=== PATIENT | female | born 1950 | race Caucasian/White ===

== ENCOUNTER 2016-12-02 11:38 | Inpatient (IN) | payer MEDICARE ==
[2016-12-02] VITALS (7 sets, daily range): BP systolic 108–125; BP diastolic 50–86
[~2016-12-02] VITALS: Ht 152.4 cm; Wt 66.7 kg
--- NOTE | ~2016-12-02 | PR ---
[place], [place] PROGRESS NOTE NAME: DEAN RODRIGUEZ UNIT #: [id number] ROOM: 523 DOCTOR: DAYNA DIAZ MD BIRTHDATE: [birth year] DOS: 12/02/2016 SUBJECTIVE: The patient was seen because of pancytopenia. Full consult to follow. The patient was advised to stop methotrexate. We also gave her a couple of units of packed RBC and started on growth factors. Depending on that, further intervention. I had detailed discussion with the patient about it. In the meantime, neutropenic precautions. DAYNA DIAZ MD CM:PNALBER [id number] DAYNA DIAZ MD 12/03/16 0757 interface
--- NOTE | ~2016-12-02 | PR ---
[place], [place] PROGRESS NOTE NAME: DEAN RODRIGUEZ UNIT #: [id number] ROOM: 523 DOCTOR: NESTOR WAGGONER MD BIRTHDATE: [birth year] DOS: 12/04/2016 SUBJECTIVE: The patient is feeling better and wanting to go home. OBJECTIVE: VITAL SIGNS: Blood pressure 132/72, heart rate 75 beats per minute, breathing 18 times per minute, temperature of 100 degrees Fahrenheit. GENERAL APPEARANCE: The patient is alert and oriented x 3, in no visible distress. HEENT AND NECK: Exam within normal limits. CARDIOVASCULAR SYSTEM: Heart rate is regular in rate and rhythm. S1 and S2 normally audible. LUNGS: Clear to auscultation. ABDOMEN: Soft, nontender. No obvious organomegaly. Bowel sounds are present. EXTREMITIES: Without significant cyanosis or edema. IMPRESSION: 1. The patient has neutropenic fever, being treated with ceftriaxone and Levaquin. She still has low grade fever, but a white cell count has improved 5000. Dr. Chambers the commissioner of conciliation box sorter who is following her. 2. Severe hypokalemia with a potassium level of 2.7 today to be replaced with liquid potassium now and potassium level to be repeated today and then tomorrow. 3. Blood and urine cultures have been negative. 4. Benign essential hypertension with controlled blood pressures. 3. Rheumatoid arthritis, treated with methotrexate and Humira, which is on hold now for neutropenic fever. NESTOR WAGGONER MD CM:PNTRANS [id number] NESTOR WAGGONER MD 12/05/16 1527 interface
--- NOTE | ~2016-12-02 | WRIGHTHP ---
[place], [place] PATIENT HISTORY AND PHYSICAL EXAM NAME: DEAN [facility]ODRIGUEZ [facility] [id number] UNIT #: [id number] ROOM: 523 DOCTOR: SAWYER PANTOJA MD BIRTHDATE: [birth year] DOS: 12/03/2016 HISTORY OF PRESENT ILLNESS: The patient is very well known to us. She presented to the office on Thursday with cold-like symptoms. The patient had called the office and had a prescription for Z-Westley a few days prior to that and she was not getting any better, so she decided to come into the office. She complained of sore throat, slight cough. She also complained of increasing tiredness and weakness. She had routine blood work ordered. She was also found to have some minimal oral candidiasis and a URI. She was placed on Nystatin swish and swallow antibiotics and blood work. The blood work showed that the patient had significant pancytopenia. [employer] who received the blood work did call her and advised admission on Thursday evening, but the patient refused. I spoke to him on Thursday morning and the patient was called in to get admitted. The patient after admission was found to be again pancytopenic. Dr. Chambers was consulted and the patient is ordered blood transfusion. This morning, the patient does not have any complaints, other than a sore throat and sore lips. PAST MEDICAL HISTORY: Significant for, 1. Rheumatoid arthritis. 2. Benign hypertension. 3. Mixed hyperlipidemia. 4. History of knee replacement, bilateral in 2005. MEDICATIONS: That she is currently on are amlodipine 10, atenolol 100, cyclobenzaprine 10 t.i.d., vitamin D 50,000 units on , folic acid 1 mg daily, lovastatin 20 daily, and methotrexate along with prednisone 5 mg daily. SOCIAL HISTORY: Nonsmoker, does not use any alcohol. Lives at home with her . PHYSICAL EXAMINATION: GENERAL: The patient is awake, alert and oriented this morning, in no distress. VITAL SIGNS: Graphic trend shows that she did have a temperature during the night with a T-max of about 100.3. This morning, a low grade temperature of 99.9. NECK: Supple. No lymph nodes. No cervical lymphadenopathy noticed. Pharynx, minimally red, but no evidence of any underlying tonsillitis or strep throat. LUNGS: Diminished breath sounds, clear. HEART: Regular. ABDOMEN: Soft, nontender. No hepatosplenomegaly. EXTREMITIES: Without any edema. No rash or petechiae is seen anywhere on her skin. LABORATORY DATA: At the time of admission, WBC count of 1.9, hemoglobin was 7.0, and platelets 73. ASSESSMENT AND PLAN: 1. 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 The patient has been admitted. Dr. Chambers has been consulted. The patient has been started [place], [place] PATIENT HISTORY AND PHYSICAL EXAM NAME: DEAN RODRIGUEZ UNIT #: [id number] ROOM: 523 DOCTOR: SAWYER PANTOJA MD BIRTHDATE: [birth year] on Neupogen. Neutropenic precautions ordered. Also, blood cultures, urine cultures and chest x-ray was done and the patient is placed on broad spectrum antibiotics. 2. Benign hypertension, controlled. 3. Rheumatoid arthritis without a flare right now, she will continue her low dose prednisone. SAWYER PANTOJA MD CM:HISPHYS:PATIENT HISTORY AND PHYSICAL EXAMINATION 7 2 SAWYER PANTOJA MD 12/03/16902 interface
--- NOTE | ~2016-12-02 | DS ---
[place], [place] DISCHARGE SUMMARY NAME[id number] UNIT #: [id number] ROOM: 523 DOCTOR: NESTOR WAGGONER MD BIRTHDATE: [birth year] DOS: 12/05/2016 DISCHARGE DIAGNOSES: 1. Neutropenic fever, resolved. 2. Pancytopenia and leukopenia evaluated by Dr. Chambers, improved. 3. Hypokalemia, treated. 4. Rheumatoid arthritis treated with Humira and methotrexate. 5. Benign essential hypertension. 6. Mixed hyperlipidemia. 7. History of knee replacement bilaterally in 2005. HOSPITAL COURSE: The patient was admitted by Dr. Shy Mondragon for neutropenic fever apparently caused by taking methotrexate any Humira for rheumatoid arthritis. The patient's both medications were stopped and blood counts were followed until they improved to normal. Total white cell count 9000, neutrophil counts 48% and patient was afebrile. The patient was treated with antibiotics during her stay at the hospital and now that she is feeling well, she will be discharged to home after clearance from Dr. Chambers to follow up with her PCP, Dr. Mondragon on Thursday or Thursday. Hypokalemia, treated with extra potassium supplements. Potassium levels are improving towards normal range from 2.7, it improved to 3.1 yesterday and it is 3.3 now and after those, the patient was given another dose of extra potassium before going home. DISCHARGE MANAGEMENT: Fosamax 70 mg weekly, simvastatin 20 mg a day, Tylenol p.r.n., prednisone 5 mg daily, folic acid 1 mg daily, atenolol 100 mg daily, amlodipine 10 mg a day, DuoNebs as needed, Abreva 5 times daily, nystatin 5 mL b.i.d. Followup with Dr. Mondragon on Thursday. The patient cleared by Dr. Chambers for discharge and outpatient followup after her neutropenic fever resolved. NESTOR WAGGONER MD CM:DISCHMILVIA [id number] NESTOR WAGGONER MD 12/05/161940 interface
[~2016-12-02 11:38] MED LIST: DARVOCET N 1001 TAB PO
[2016-12-02] MEDS ORDERED: VITAMIN D50000 I3 PO (12:26)
[2016-12-02] MEDS ORDERED: CYCLOBENZAPRINE10 MG PO (12:26)
[2016-12-02] MEDS ORDERED: AMLODIPINE BESY10 MG PO (12:27)
[2016-12-02] MEDS ORDERED: LOVASTATIN20 MG PO (12:27)
[2016-12-02] MEDS ORDERED: ATENOLOL100 M1 PO (12:27)
[2016-12-02] MEDS ORDERED: RAYOS5 M1 PO (12:28)
[2016-12-02] MEDS ORDERED: METHOTREXATE2.5 M1 PO ×2 (12:29→12:30)
[2016-12-02] MEDS ORDERED: FOSAMAX70 M1 PO (12:30)
[2016-12-02] MEDS ORDERED: NATURE'S BLEND F1 MG PO (12:31)
[2016-12-02] MEDS ORDERED: AMOXICILLIN500 M2 PO (12:31)
[2016-12-02] MEDS ORDERED: NYSTATIN100000 U/M PO (12:32)
[2016-12-02] MEDS ORDERED: FLUCONAZOLE100 MG PO (12:32)
[2016-12-02 13:34] LABS: HEMATOCRIT 21.6 % (37.0-47.0); MEAN CELL VOLUME 99.1 fl (81.0-99.0); MEAN CORPUSCULAR HGB 32.1 pg (27.0-31.0); MEAN CORPUSCULAR HGB CONC 32.4 g/dl (33.0-37.0); MEAN PLATELET VOLUME 10.3 fl (9.6-12.3); NUCLEATED RED BLOOD CELL 2.6 % (0.0-0.0); PLATELET COUNT AUTOMATED 73 10*3/uL (130-400); RED BLOOD COUNT 2.18 10*6/uL (4.10-5.10); RED CELL DISTRI WIDTH 17.2 % (0-14.5)
[2016-12-02 13:51] LABS: EOSINOPHILS 3 % (1-4); LYMPHOCYTE # 0.6 10*3/uL (1.3-4.4); MONOCYTE # 0.1 10*3/uL (0.1-1.0); NEUTROPHIL # 0.5 10*3/uL (2.3-7.9); NEUTROPHILS 38 % (47-73); PLATELET SUFFICIENCY LOW (NORMAL); POLYCHROMASIA SLIGHT; TOTAL CELLS COUNTED 100 #CELLS
[2016-12-02 13:53] LABS: WHITE BLOOD COUNT 1.2 10*3/uL (4.8-10.8)
[2016-12-02 14:18] LABS: RETICULOCYTE % 1.79 % (0.50-2.50)
[2016-12-02 14:21] LABS: IRF 30.1 % (2.4-13.3); RET-He 37.7 pg (32.1-37.9)
[2016-12-02 14:26] LABS: IRON 24 ug/dL (50-170); IRON SATURATION 10 %; UIBC 195 ug/dL (110-365)
[2016-12-03] VITALS (12 sets, daily range): BP systolic 111–147; BP diastolic 60–76
[2016-12-03 06:51] LABS: MEAN CORPUSCULAR HGB 31.4 pg (27.0-31.0); MEAN CORPUSCULAR HGB CONC 34.3 g/dl (33.0-37.0); NUCLEATED RED BLOOD CELL 1.1 % (0.0-0.0); PLATELET COUNT AUTOMATED 59 10*3/uL (130-400); RED BLOOD COUNT 3.28 10*6/uL (4.10-5.10); RED CELL DISTRI WIDTH 17.7 % (0-14.5)
[2016-12-03 06:58] LABS: HEMOGLOBIN 10.3 g/dl (12.0-16.0); MEAN CELL VOLUME 91.5 fl (81.0-99.0)
[2016-12-03 07:16] LABS: EOSINOPHIL # 0.3 10*3/uL (0-0.4); EOSINOPHILS 14 % (1-4); MONOCYTE # 0.2 10*3/uL (0.1-1.0); MYELOCYTES 1 % (0-0); NEUTROPHIL # 0.4 10*3/uL (2.3-7.9); NEUTROPHILS 21 % (47-73); OVALOCYTES FEW; PLATELET SUFFICIENCY LOW (NORMAL); TEAR DROP CELLS FEW; TOTAL CELLS COUNTED 100 #CELLS
[2016-12-03 07:18] LABS: WHITE BLOOD COUNT 1.9 10*3/uL (4.8-10.8)
[2016-12-03 07:24] LABS: EST GLOM FILT AFRICAN AMERICAN > 60 ml/min
[2016-12-04] VITALS: BP 116/71; BP 130/65
[2016-12-04 06:47] LABS: HEMATOCRIT 29.8 % (37.0-47.0); HEMOGLOBIN 10.2 g/dl (12.0-16.0); MEAN CELL VOLUME 92.5 fl (81.0-99.0); MEAN CORPUSCULAR HGB 31.7 pg (27.0-31.0); MEAN CORPUSCULAR HGB CONC 34.2 g/dl (33.0-37.0); MEAN PLATELET VOLUME 11.5 fl (9.6-12.3); NUCLEATED RED BLOOD CELL 0.4 % (0.0-0.0); RED BLOOD COUNT 3.22 10*6/uL (4.10-5.10); RED CELL DISTRI WIDTH 18.4 % (0-14.5); WHITE BLOOD COUNT 5.1 10*3/uL (4.8-10.8)
[2016-12-04 06:54] LABS: PLATELET COUNT AUTOMATED 77 10*3/uL (130-400)
[2016-12-04 07:10] LABS: ACANTHOCYTES FEW; BASOPHIL # 0.1 10*3/uL (0-0.1); BASOPHILS 1 % (0-1); EOSINOPHIL # 0.9 10*3/uL (0-0.4); EOSINOPHILS 17 % (1-4); LYMPHOCYTE # 1.1 10*3/uL (1.3-4.4); METAMYELOCYTES 5 % (0-0); MONOCYTE # 0.7 10*3/uL (0.1-1.0); MYELOCYTES 5 % (0-0); NEUTROPHIL # 1.8 10*3/uL (2.3-7.9); NEUTROPHILS 35 % (47-73); OVALOCYTES FEW; PLATELET SUFFICIENCY LOW (NORMAL); PROMYELOCYTES 2 % (0-0); TOTAL CELLS COUNTED 100 #CELLS
[2016-12-04 07:22] LABS: BUN 4 mg/dl (7-24); CARBON DIOXIDE 22 mmol/L (21-32); CHLORIDE 112 mmol/L (98-107); EST GLOM FILT AFRICAN AMERICAN > 60 ml/min; GLUCOSE 85 mg/dL (65-99); POTASSIUM 2.7 mmol/L (3.5-5.1); SODIUM 145 mmol/L (136-145)
[2016-12-04 08:00] VITALS: BP 127/66
[2016-12-04 12:00] VITALS: BP 119/64
[2016-12-04 16:00] VITALS: BP 132/72
[2016-12-04 20:00] VITALS: BP 128/70
[2016-12-05] VITALS: BP 116/71; BP 128/70
[2016-12-05 07:00] LABS: HEMATOCRIT 31.1 % (37.0-47.0); HEMOGLOBIN 10.6 g/dl (12.0-16.0); MEAN CELL VOLUME 92.6 fl (81.0-99.0); MEAN CORPUSCULAR HGB 31.5 pg (27.0-31.0); MEAN CORPUSCULAR HGB CONC 34.1 g/dl (33.0-37.0); MEAN PLATELET VOLUME 11.5 fl (9.6-12.3); NUCLEATED RED BLOOD CELL 0.2 % (0.0-0.0); RED BLOOD COUNT 3.36 10*6/uL (4.10-5.10); RED CELL DISTRI WIDTH 18.6 % (0-14.5)
[2016-12-05 07:09] LABS: PLATELET COUNT AUTOMATED 104 10*3/uL (130-400)
[2016-12-05 07:29] LABS: EOSINOPHIL # 1.1 10*3/uL (0-0.4); EOSINOPHILS 12 % (1-4); LYMPHOCYTE # 1.4 10*3/uL (1.3-4.4); METAMYELOCYTES 1 % (0-0); MONOCYTE # 1.6 10*3/uL (0.1-1.0); MYELOCYTES 3 % (0-0); NEUTROPHIL # 4.3 10*3/uL (2.3-7.9); NEUTROPHILS 48 % (47-73); OVALOCYTES MODERATE; PLATELET SUFFICIENCY LOW (NORMAL); POLYCHROMASIA SLIGHT; PROMYELOCYTES 2 % (0-0); TOTAL CELLS COUNTED 100 #CELLS
[2016-12-05 07:33] LABS: BUN 4 mg/dl (7-24); CARBON DIOXIDE 22 mmol/L (21-32); CHLORIDE 114 mmol/L (98-107); EST GLOM FILT AFRICAN AMERICAN > 60 ml/min; GLUCOSE 74 mg/dL (65-99); POTASSIUM 3.3 mmol/L (3.5-5.1); SODIUM 146 mmol/L (136-145)
[2016-12-05 08:00] VITALS: BP 126/67
[2016-12-05 12:00] VITALS: BP 135/77
[2016-12-05 15:39] VITALS: BP 93/59
== END 2016-12-05 16:08 | disposition home or self-care (01) | DRG 810 ==
LOC: 5E 11:38
PROVIDERS: Internal Medicine; Internal Medicine Hematology & Oncology
PROC: 30233N1 Transfusion of Nonautologous Red Blood Cells into Peripheral Vein, Percutaneous Approach (ICD-10-PCS; principal; 2016-12-02)
DX: D61.811 Other drug-induced pancytopenia (principal); I10 Essential (primary) hypertension; T45.1X5A Adverse effect of antineoplastic and immunosuppressive drugs, initial encounter; M06.9 Rheumatoid arthritis, unspecified; E78.2 Mixed hyperlipidemia; Z96.653 Presence of artificial knee joint, bilateral; E87.6 Hypokalemia; R50.81 Fever presenting with conditions classified elsewhere

== ENCOUNTER → 2017-10-15 | Outpatient (CLI) | payer MEDICARE ==
[~2017-10-15] VITALS: Ht 149.8 cm; Wt 68.9 kg
[~2017-10-15] MED LIST changes: +AMLODIPINE BESY10 MG PO; +AMOXICILLIN500 M2 PO; +ATENOLOL100 M1 PO; +CYCLOBENZAPRINE10 MG PO; +FLUCONAZOLE100 MG PO; +FOSAMAX70 M1 PO; +HUMIRA40 MG/0.3 IJ; +HYDROCODONE-AC1 EAC2 PO; +LOVASTATIN20 MG PO; +METHOTREXATE S2.5 M1 PO; +METHOTREXATE2.5 M1 PO; +NATURE'S BLEND F1 MG PO; +NYSTATIN100000 U/M PO; +RAYOS5 M1 PO; +VITAMIN D50000 I3 PO
== END | disposition home or self-care (01) ==
LOC: EDSTATUS 10-13 14:45 → SDC 10-13 14:45 → RAD 07:24 → SDC 10:00 → EDSTATUS 14:45 → SDC 14:45
DX: M54.5 Low back pain (principal); M48.50XD Collapsed vertebra, not elsewhere classified, site unspecified, subsequent encounter for fracture with routine healing; Z01.812 Encounter for preprocedural laboratory examination

== ENCOUNTER → 2017-10-22 | Outpatient (CLI) | payer MEDICARE | END | disposition home or self-care (01) | LOC: US 15:27 | DX: R79.89 Other specified abnormal findings of blood chemistry (principal) ==

== ENCOUNTER 2017-11-01 12:06 | Emergency (ER) | payer MEDICARE ==
[~2017-11-01] VITALS: Ht 152.4 cm; Wt 68.9 kg
[2017-11-01] MEDS ORDERED: LEXAPRO10 MG PO (12:19)
== END 2017-11-01 13:53 | disposition home or self-care (01) ==
LOC: ED 12:06
DX: G89.29 Other chronic pain (principal); M54.5 Low back pain; Z98.51 Tubal ligation status; Z79.899 Other long term (current) drug therapy

== ENCOUNTER → 2019-01-28 | Outpatient (CLI) | payer MEDICARE ==
[~2019-01-28] MED LIST changes: +LEXAPRO10 MG PO
[2019-01-28 13:39] LABS: BASO % 0.5 % (0.0-1.0); EOS # 0.1 10*3/uL (0.0-0.4); EOS % 1.8 % (1.0-4.0); HEMATOCRIT 39.8 % (37.0-47.0); HEMOGLOBIN 12.9 g/dl (12.0-16.0); LYMPH # 2.4 10*3/uL (1.3-4.4); LYMPH % 40.6 % (27.0-41.0); MEAN CELL VOLUME 102.3 fl (81.0-99.0); MEAN CORPUSCULAR HGB 33.2 pg (27.0-31.0); MEAN CORPUSCULAR HGB CONC 32.4 g/dl (33.0-37.0); MEAN PLATELET VOLUME 9.7 fl (9.6-12.3); MONO # 0.6 10*3/uL (0.1-1.0); MONO % 9.7 % (3.0-9.0); NEUT # 2.8 10*3/uL (2.3-7.9); NEUT % 47.2 % (47.0-73.0); PLATELET COUNT AUTOMATED 208 10*3/uL (130-400); RED BLOOD COUNT 3.89 10*6/uL (4.10-5.10); RED CELL DISTRI WIDTH 14.9 % (0-14.5)
[2019-01-28 13:53] LABS: ALBUMIN 4.2 gm/dl (3.1-4.5); CREATININE 0.99 mg/dL (0.55-1.02); SGOT/AST 27 IU/L (3-35); SGPT/ALT 32 U/L (12-78)
== END | disposition home or self-care (01) ==
LOC: LAB 12:46
PROVIDERS: Internal Medicine Rheumatology
DX: Z51.81 Encounter for therapeutic drug level monitoring (principal)

== ENCOUNTER → 2019-05-11 | Outpatient (CLI) | payer MEDICARE ==
[2019-05-11 10:30] LABS: BASO % 0.6 % (0.0-1.0); EOS # 0.1 10*3/uL (0.0-0.4); EOS % 1.6 % (1.0-4.0); HEMATOCRIT 38.5 % (37.0-47.0); HEMOGLOBIN 12.9 g/dl (12.0-16.0); LYMPH # 2.1 10*3/uL (1.3-4.4); LYMPH % 41.3 % (27.0-41.0); MEAN CELL VOLUME 99.5 fl (81.0-99.0); MEAN CORPUSCULAR HGB 33.3 pg (27.0-31.0); MEAN CORPUSCULAR HGB CONC 33.5 g/dl (33.0-37.0); MEAN PLATELET VOLUME 9.5 fl (9.6-12.3); MONO # 0.6 10*3/uL (0.1-1.0); MONO % 11.9 % (3.0-9.0); NEUT # 2.3 10*3/uL (2.3-7.9); NEUT % 44.4 % (47.0-73.0); PLATELET COUNT AUTOMATED 188 10*3/uL (130-400); RED BLOOD COUNT 3.87 10*6/uL (4.10-5.10); RED CELL DISTRI WIDTH 14.6 % (0-14.5); WHITE BLOOD COUNT 5.1 10*3/uL (4.8-10.8)
[2019-05-11 10:51] LABS: ALBUMIN 4.3 gm/dl (3.1-4.5); CREATININE 0.97 mg/dL (0.55-1.02); SGOT/AST 18 IU/L (3-35); SGPT/ALT 21 U/L (12-78)
== END | disposition home or self-care (01) ==
LOC: LAB 10:06
PROVIDERS: Internal Medicine Rheumatology
DX: Z51.81 Encounter for therapeutic drug level monitoring (principal)

== ENCOUNTER → 2019-07-26 | Outpatient (CLI) | payer MEDICARE ==
[2019-07-26 11:20] LABS: BASO % 0.5 % (0.0-1.0); EOS # 0.1 10*3/uL (0.0-0.4); EOS % 1.4 % (1.0-4.0); HEMATOCRIT 39.2 % (37.0-47.0); HEMOGLOBIN 12.9 g/dl (12.0-16.0); LYMPH # 1.5 10*3/uL (1.3-4.4); LYMPH % 18.8 % (27.0-41.0); MEAN CELL VOLUME 102.6 fl (81.0-99.0); MEAN CORPUSCULAR HGB 33.8 pg (27.0-31.0); MEAN CORPUSCULAR HGB CONC 32.9 g/dl (33.0-37.0); MEAN PLATELET VOLUME 9.6 fl (9.6-12.3); MONO # 0.6 10*3/uL (0.1-1.0); MONO % 7.5 % (3.0-9.0); NEUT # 5.5 10*3/uL (2.3-7.9); NEUT % 71.5 % (47.0-73.0); PLATELET COUNT AUTOMATED 249 10*3/uL (130-400); RED BLOOD COUNT 3.82 10*6/uL (4.10-5.10); RED CELL DISTRI WIDTH 15.2 % (0-14.5); WHITE BLOOD COUNT 7.8 10*3/uL (4.8-10.8)
[2019-07-26 11:40] LABS: ALBUMIN 4.1 gm/dl (3.1-4.5); CREATININE 1.06 mg/dL (0.55-1.02); SGOT/AST 67 IU/L (3-35); SGPT/ALT 92 U/L (12-78)
== END | disposition home or self-care (01) ==
LOC: LAB 10:39
PROVIDERS: Internal Medicine Rheumatology
DX: Z51.81 Encounter for therapeutic drug level monitoring (principal); I10 Essential (primary) hypertension

== ENCOUNTER → 2019-09-20 | Outpatient (CLI) | payer MEDICARE ==
[2019-09-20 11:51] LABS: BASO % 0.4 % (0.0-1.0); EOS # 0.1 10*3/uL (0.0-0.4); EOS % 0.8 % (1.0-4.0); HEMATOCRIT 44.9 % (37.0-47.0); HEMOGLOBIN 14.6 g/dl (12.0-16.0); LYMPH # 3.6 10*3/uL (1.3-4.4); LYMPH % 37.4 % (27.0-41.0); MEAN CELL VOLUME 97.6 fl (81.0-99.0); MEAN CORPUSCULAR HGB 31.7 pg (27.0-31.0); MEAN CORPUSCULAR HGB CONC 32.5 g/dl (33.0-37.0); MEAN PLATELET VOLUME 8.9 fl (9.6-12.3); MONO # 0.7 10*3/uL (0.1-1.0); MONO % 7.3 % (3.0-9.0); NEUT # 5.3 10*3/uL (2.3-7.9); NEUT % 53.9 % (47.0-73.0); PLATELET COUNT AUTOMATED 248 10*3/uL (130-400); RED CELL DISTRI WIDTH 12.6 % (0-14.5); WHITE BLOOD COUNT 9.7 10*3/uL (4.8-10.8)
[2019-09-20 12:15] LABS: ALBUMIN 4.1 gm/dl (3.1-4.5); ALKALINE PHOSPHATASE 66 U/L (45-117); BUN 15 mg/dl (7-24); CHLORIDE 109 mmol/L (98-107); POTASSIUM 3.5 mmol/L (3.5-5.1); SGOT/AST 14 IU/L (3-35); SGPT/ALT 21 U/L (12-78); SODIUM 142 mmol/L (136-145); TOTAL PROTEIN 8.8 gm/dL (6.4-8.2)
[2019-09-23 06:12] LABS: TB1 Ag VALUE 0.11 IU/mL (.)
== END | disposition home or self-care (01) ==
LOC: LAB 11:14
PROVIDERS: Internal Medicine Rheumatology
DX: R06.02 Shortness of breath (principal); M05.79 Rheumatoid arthritis with rheumatoid factor of multiple sites without organ or systems involvement; Z79.899 Other long term (current) drug therapy

== ENCOUNTER → 2020-03-15 | Outpatient (CLI) | payer MEDICARE, OTHER ==
[2020-03-15 09:48] LABS: BASO % 0.3 % (0.0-1.0); EOS # 0.1 10*3/uL (0.0-0.4); EOS % 0.5 % (1.0-4.0); HEMATOCRIT 41.9 % (37.0-47.0); LYMPH # 4.6 10*3/uL (1.3-4.4); LYMPH % 49.1 % (27.0-41.0); MEAN CELL VOLUME 88.4 fl (81.0-99.0); MEAN CORPUSCULAR HGB 28.9 pg (27.0-31.0); MEAN CORPUSCULAR HGB CONC 32.7 g/dl (33.0-37.0); MEAN PLATELET VOLUME 8.8 fl (9.6-12.3); MONO # 0.6 10*3/uL (0.1-1.0); MONO % 6.4 % (3.0-9.0); NEUT % 43.5 % (47.0-73.0); PLATELET COUNT AUTOMATED 302 10*3/uL (130-400); RED BLOOD COUNT 4.74 10*6/uL (4.10-5.10); RED CELL DISTRI WIDTH 15.9 % (0-14.5); WHITE BLOOD COUNT 9.3 10*3/uL (4.8-10.8)
[2020-03-15 10:05] LABS: ALBUMIN 3.8 gm/dl (3.1-4.5); BUN 18 mg/dl (7-24); CHLORIDE 108 mmol/L (98-107); CHOLESTEROL 176 mg/dL (<200); CREATININE 0.85 mg/dL (0.55-1.02); POTASSIUM 3.2 mmol/L (3.5-5.1); SGOT/AST 15 IU/L (3-35); SGPT/ALT 28 U/L (12-78); SODIUM 140 mmol/L (136-145); TRIGLYCERIDES 221 mg/dl (<150); VLDL CHOLESTEROL 44 mg/dL (6-40)
[2020-03-15 10:09] LABS: ALKALINE PHOSPHATASE 48 U/L (45-117); FREE T4 1.03 ng/dl (0.76-1.46); HDL CHOLESTEROL 80 mg/dl (40-60); LDL CHOLESTEROL 52 mg/dL (9-159); TOTAL PROTEIN 7.8 gm/dL (6.4-8.2)
[2020-03-15 12:37] LABS: VITAMIN D, 25-HYDROXY 17.5 ng/mL (30-100)
== END | disposition home or self-care (01) ==
LOC: LAB 09:21
PROVIDERS: Internal Medicine
DX: Z00.00 Encounter for general adult medical examination without abnormal findings (principal); I10 Essential (primary) hypertension; M06.9 Rheumatoid arthritis, unspecified; E55.9 Vitamin D deficiency, unspecified; E78.2 Mixed hyperlipidemia; E53.8 Deficiency of other specified B group vitamins

== ENCOUNTER → 2020-04-20 | Outpatient (CLI) | payer MEDICARE, OTHER ==
[2020-04-20 10:38] LABS: BASO % 0.4 % (0.0-1.0); EOS # 0.1 10*3/uL (0.0-0.4); EOS % 0.9 % (1.0-4.0); HEMATOCRIT 39.9 % (37.0-47.0); LYMPH # 1.6 10*3/uL (1.3-4.4); LYMPH % 23.8 % (27.0-41.0); MEAN CELL VOLUME 90.5 fl (81.0-99.0); MEAN CORPUSCULAR HGB 29.7 pg (27.0-31.0); MEAN CORPUSCULAR HGB CONC 32.8 g/dl (33.0-37.0); MONO # 0.7 10*3/uL (0.1-1.0); MONO % 9.4 % (3.0-9.0); NEUT # 4.5 10*3/uL (2.3-7.9); NEUT % 65.4 % (47.0-73.0); PLATELET COUNT AUTOMATED 242 10*3/uL (130-400); RED BLOOD COUNT 4.41 10*6/uL (4.10-5.10); RED CELL DISTRI WIDTH 17.1 % (0-14.5); WHITE BLOOD COUNT 6.9 10*3/uL (4.8-10.8)
[2020-04-20 11:01] LABS: ALKALINE PHOSPHATASE 51 U/L (45-117); BUN 14 mg/dl (7-24); CHLORIDE 111 mmol/L (98-107); CREATININE 1.04 mg/dL (0.55-1.02); POTASSIUM 3.7 mmol/L (3.5-5.1); SGOT/AST 17 IU/L (3-35); SGPT/ALT 17 U/L (12-78); SODIUM 140 mmol/L (136-145); TOTAL PROTEIN 7.7 gm/dL (6.4-8.2)
== END | disposition home or self-care (01) ==
LOC: LAB 09:57
PROVIDERS: ATTEND Internal Medicine Rheumatology
DX: I10 Essential (primary) hypertension (principal); Z79.899 Other long term (current) drug therapy

== ENCOUNTER → 2020-05-08 | Outpatient (CLI) | payer MEDICARE, OTHER | END | disposition home or self-care (01) | LOC: CARD 12:40 | PROVIDERS: ATTEND Internal Medicine | DX: I35.1 Nonrheumatic aortic (valve) insufficiency (principal); I51.7 Cardiomegaly ==

== ENCOUNTER → 2020-06-05 | Outpatient (CLI) | payer MEDICARE, OTHER ==
[2020-06-05 10:11] LABS: BASO % 0.5 % (0.0-1.0); EOS # 0.1 10*3/uL (0.0-0.4); EOS % 1.3 % (1.0-4.0); HEMATOCRIT 37.4 % (37.0-47.0); LYMPH # 2.2 10*3/uL (1.3-4.4); LYMPH % 35.6 % (27.0-41.0); MEAN CELL VOLUME 95.4 fl (81.0-99.0); MEAN CORPUSCULAR HGB 30.6 pg (27.0-31.0); MEAN CORPUSCULAR HGB CONC 32.1 g/dl (33.0-37.0); MEAN PLATELET VOLUME 9.5 fl (9.6-12.3); MONO # 0.6 10*3/uL (0.1-1.0); MONO % 9.9 % (3.0-9.0); NEUT # 3.2 10*3/uL (2.3-7.9); NEUT % 52.5 % (47.0-73.0); PLATELET COUNT AUTOMATED 215 10*3/uL (130-400); RED BLOOD COUNT 3.92 10*6/uL (4.10-5.10); RED CELL DISTRI WIDTH 14.9 % (0-14.5); WHITE BLOOD COUNT 6.1 10*3/uL (4.8-10.8)
[2020-06-05 10:34] LABS: ALBUMIN 4.1 gm/dl (3.1-4.5); ALKALINE PHOSPHATASE 50 U/L (45-117); BUN 20 mg/dl (7-24); CHLORIDE 110 mmol/L (98-107); CREATININE 0.89 mg/dL (0.55-1.02); POTASSIUM 3.6 mmol/L (3.5-5.1); SGOT/AST 21 IU/L (3-35); SGPT/ALT 22 U/L (12-78); SODIUM 142 mmol/L (136-145); TOTAL PROTEIN 7.8 gm/dL (6.4-8.2)
== END | disposition home or self-care (01) ==
LOC: LAB 09:55
PROVIDERS: ATTEND Internal Medicine Rheumatology
DX: I10 Essential (primary) hypertension (principal); Z79.899 Other long term (current) drug therapy

== ENCOUNTER → 2020-07-31 | Outpatient (CLI) | payer MEDICARE, OTHER ==
[2020-07-31 11:21] LABS: BASO % 0.4 % (0.0-1.0); EOS # 0.1 10*3/uL (0.0-0.4); EOS % 1.4 % (1.0-4.0); HEMATOCRIT 37.2 % (37.0-47.0); LYMPH # 2.1 10*3/uL (1.3-4.4); LYMPH % 41.7 % (27.0-41.0); MEAN CELL VOLUME 95.9 fl (81.0-99.0); MEAN CORPUSCULAR HGB 30.9 pg (27.0-31.0); MEAN CORPUSCULAR HGB CONC 32.3 g/dl (33.0-37.0); MEAN PLATELET VOLUME 9.2 fl (9.6-12.3); MONO # 0.5 10*3/uL (0.1-1.0); MONO % 9.1 % (3.0-9.0); NEUT # 2.4 10*3/uL (2.3-7.9); NEUT % 47.2 % (47.0-73.0); PLATELET COUNT AUTOMATED 232 10*3/uL (130-400); RED BLOOD COUNT 3.88 10*6/uL (4.10-5.10); RED CELL DISTRI WIDTH 14.5 % (0-14.5); WHITE BLOOD COUNT 5.1 10*3/uL (4.8-10.8)
[2020-07-31 11:36] LABS: ALBUMIN 4.1 gm/dl (3.1-4.5); ALKALINE PHOSPHATASE 52 U/L (45-117); BUN 18 mg/dl (7-24); CHLORIDE 107 mmol/L (98-107); CREATININE 0.99 mg/dL (0.55-1.02); POTASSIUM 3.5 mmol/L (3.5-5.1); SGOT/AST 21 IU/L (3-35); SGPT/ALT 24 U/L (12-78); SODIUM 138 mmol/L (136-145)
== END | disposition home or self-care (01) ==
LOC: LAB 10:59 → CT 11:00
PROVIDERS: Internal Medicine Rheumatology; ATTEND Internal Medicine
DX: I51.7 Cardiomegaly (principal); R91.8 Other nonspecific abnormal finding of lung field; I10 Essential (primary) hypertension; K76.0 Fatty (change of) liver, not elsewhere classified; M41.86 Other forms of scoliosis, lumbar region; M47.816 Spondylosis without myelopathy or radiculopathy, lumbar region; I70.8 Atherosclerosis of other arteries; Z79.899 Other long term (current) drug therapy

== ENCOUNTER → 2020-09-07 | Outpatient (CLI) | payer MEDICARE, OTHER ==
[2020-09-07 10:13] LABS: BASO % 0.6 % (0.0-1.0); EOS # 0.1 10*3/uL (0.0-0.4); EOS % 2.4 % (1.0-4.0); HEMATOCRIT 37.3 % (37.0-47.0); LYMPH # 2.3 10*3/uL (1.3-4.4); LYMPH % 46.5 % (27.0-41.0); MEAN CELL VOLUME 97.9 fl (81.0-99.0); MEAN CORPUSCULAR HGB 31.5 pg (27.0-31.0); MEAN CORPUSCULAR HGB CONC 32.2 g/dl (33.0-37.0); MEAN PLATELET VOLUME 9.6 fl (9.6-12.3); MONO # 0.6 10*3/uL (0.1-1.0); MONO % 11.1 % (3.0-9.0); NEUT % 39.4 % (47.0-73.0); PLATELET COUNT AUTOMATED 181 10*3/uL (130-400); RED BLOOD COUNT 3.81 10*6/uL (4.10-5.10); RED CELL DISTRI WIDTH 14.5 % (0-14.5)
[2020-09-07 10:43] LABS: ALBUMIN 3.8 gm/dl (3.1-4.5); ALKALINE PHOSPHATASE 50 U/L (45-117); BUN 17 mg/dl (7-24); CHLORIDE 109 mmol/L (98-107); CREATININE 0.85 mg/dL (0.55-1.02); POTASSIUM 3.4 mmol/L (3.5-5.1); SGOT/AST 21 IU/L (3-35); SGPT/ALT 25 U/L (12-78); SODIUM 141 mmol/L (136-145); TOTAL PROTEIN 7.4 gm/dL (6.4-8.2)
== END | disposition home or self-care (01) ==
LOC: LAB 10:00
PROVIDERS: ATTEND Internal Medicine Rheumatology
DX: I10 Essential (primary) hypertension (principal); Z79.899 Other long term (current) drug therapy

== ENCOUNTER → 2020-11-21 | Outpatient (CLI) | payer MEDICARE, OTHER ==
[2020-11-21 11:04] LABS: BASO % 0.6 % (0.0-1.0); EOS # 0.1 10*3/uL (0.0-0.4); EOS % 1.8 % (1.0-4.0); HEMATOCRIT 37.6 % (37.0-47.0); LYMPH # 2.3 10*3/uL (1.3-4.4); LYMPH % 45.5 % (27.0-41.0); MEAN CELL VOLUME 96.2 fl (81.0-99.0); MEAN CORPUSCULAR HGB 30.7 pg (27.0-31.0); MEAN CORPUSCULAR HGB CONC 31.9 g/dl (33.0-37.0); MEAN PLATELET VOLUME 9.6 fl (9.6-12.3); MONO # 0.5 10*3/uL (0.1-1.0); MONO % 9.6 % (3.0-9.0); NEUT # 2.2 10*3/uL (2.3-7.9); NEUT % 42.3 % (47.0-73.0); PLATELET COUNT AUTOMATED 193 10*3/uL (130-400); RED BLOOD COUNT 3.91 10*6/uL (4.10-5.10); RED CELL DISTRI WIDTH 14.5 % (0-14.5); WHITE BLOOD COUNT 5.1 10*3/uL (4.8-10.8)
[2020-11-21 11:36] LABS: ALBUMIN 3.8 gm/dl (3.1-4.5); ALKALINE PHOSPHATASE 63 U/L (45-117); BUN 18 mg/dl (7-24); CHLORIDE 110 mmol/L (98-107); CREATININE 0.85 mg/dL (0.55-1.02); POTASSIUM 3.2 mmol/L (3.5-5.1); SGOT/AST 13 IU/L (3-35); SGPT/ALT 21 U/L (12-78); SODIUM 141 mmol/L (136-145); TOTAL PROTEIN 7.4 gm/dL (6.4-8.2)
== END | disposition home or self-care (01) ==
LOC: LAB 10:41
PROVIDERS: ATTEND Internal Medicine Rheumatology
DX: I10 Essential (primary) hypertension (principal); Z79.899 Other long term (current) drug therapy

== ENCOUNTER → 2021-02-05 | Outpatient (CLI) | payer MEDICARE, OTHER ==
[2021-02-05 12:00] LABS: BASO % 0.8 % (0.0-1.0); EOS # 0.1 10*3/uL (0.0-0.4); EOS % 2.4 % (1.0-4.0); HEMATOCRIT 35.4 % (37.0-47.0); LYMPH # 1.5 10*3/uL (1.3-4.4); LYMPH % 29.7 % (27.0-41.0); MEAN CELL VOLUME 94.4 fl (81.0-99.0); MEAN CORPUSCULAR HGB 30.4 pg (27.0-31.0); MEAN CORPUSCULAR HGB CONC 32.2 g/dl (33.0-37.0); MEAN PLATELET VOLUME 9.8 fl (9.6-12.3); MONO # 0.5 10*3/uL (0.1-1.0); MONO % 10.4 % (3.0-9.0); NEUT # 2.8 10*3/uL (2.3-7.9); NEUT % 56.5 % (47.0-73.0); PLATELET COUNT AUTOMATED 201 10*3/uL (130-400); RED BLOOD COUNT 3.75 10*6/uL (4.10-5.10); RED CELL DISTRI WIDTH 16.1 % (0-14.5)
[2021-02-05 12:28] LABS: ALBUMIN 3.6 gm/dl (3.1-4.5); ALKALINE PHOSPHATASE 60 U/L (45-117); BUN 18 mg/dl (7-24); CHLORIDE 112 mmol/L (98-107); CREATININE 0.79 mg/dL (0.55-1.02); POTASSIUM 3.3 mmol/L (3.5-5.1); SGOT/AST 15 IU/L (3-35); SGPT/ALT 19 U/L (12-78); SODIUM 141 mmol/L (136-145); TOTAL PROTEIN 7.2 gm/dL (6.4-8.2)
== END | disposition home or self-care (01) ==
LOC: LAB 11:10
PROVIDERS: ATTEND Internal Medicine Rheumatology
DX: I10 Essential (primary) hypertension (principal); Z79.899 Other long term (current) drug therapy

== ENCOUNTER → 2021-05-02 | Outpatient (CLI) | payer MEDICARE, OTHER ==
[2021-05-02 13:58] LABS: BASO % 0.4 % (0.0-1.0); EOS # 0.1 10*3/uL (0.0-0.4); EOS % 1.2 % (1.0-4.0); HEMATOCRIT 38.1 % (37.0-47.0); LYMPH # 1.3 10*3/uL (1.3-4.4); LYMPH % 15.8 % (27.0-41.0); MEAN CELL VOLUME 95.3 fl (81.0-99.0); MEAN CORPUSCULAR HGB 31.5 pg (27.0-31.0); MEAN CORPUSCULAR HGB CONC 33.1 g/dl (33.0-37.0); MEAN PLATELET VOLUME 9.5 fl (9.6-12.3); MONO # 0.5 10*3/uL (0.1-1.0); MONO % 5.6 % (3.0-9.0); NEUT # 6.2 10*3/uL (2.3-7.9); NEUT % 76.8 % (47.0-73.0); PLATELET COUNT AUTOMATED 196 10*3/uL (130-400); RED CELL DISTRI WIDTH 15.2 % (0-14.5); WHITE BLOOD COUNT 8.1 10*3/uL (4.8-10.8)
[2021-05-02 14:29] LABS: ALBUMIN 3.9 gm/dl (3.1-4.5); CREATININE 1.11 mg/dL (0.55-1.02); FREE T4 0.73 ng/dl (0.76-1.46); POTASSIUM 3.5 mmol/L (3.5-5.1); TOTAL PROTEIN 7.8 gm/dL (6.4-8.2)
[2021-05-02 14:34] LABS: THYROID STIM HORMONE (HS) 2.83 uIU/ml (0.358-4.75)
[2021-05-02 17:04] LABS: VITAMIN D, 25-HYDROXY 28.4 ng/mL (30-100)
== END | disposition home or self-care (01) ==
LOC: CARD 05-01 10:30 → LAB 13:37 → CARD 15:00
PROVIDERS: ATTEND Internal Medicine
DX: I35.1 Nonrheumatic aortic (valve) insufficiency (principal); I10 Essential (primary) hypertension; E78.2 Mixed hyperlipidemia; E55.9 Vitamin D deficiency, unspecified; M06.9 Rheumatoid arthritis, unspecified; M05.79 Rheumatoid arthritis with rheumatoid factor of multiple sites without organ or systems involvement; Z79.899 Other long term (current) drug therapy

== ENCOUNTER → 2021-08-22 | Outpatient (CLI) | payer MEDICARE, OTHER ==
[2021-08-22 10:36] LABS: BASO % 0.4 % (0.0-1.0); EOS # 0.1 10*3/uL (0.0-0.4); EOS % 1.7 % (1.0-4.0); HEMATOCRIT 38.4 % (37.0-47.0); LYMPH % 42.6 % (27.0-41.0); MEAN CELL VOLUME 98.7 fl (81.0-99.0); MEAN CORPUSCULAR HGB 32.1 pg (27.0-31.0); MEAN CORPUSCULAR HGB CONC 32.6 g/dl (33.0-37.0); MONO # 0.6 10*3/uL (0.1-1.0); MONO % 12.4 % (3.0-9.0); NEUT % 42.7 % (47.0-73.0); PLATELET COUNT AUTOMATED 215 10*3/uL (130-400); RED BLOOD COUNT 3.89 10*6/uL (4.10-5.10); RED CELL DISTRI WIDTH 13.7 % (0-14.5); WHITE BLOOD COUNT 4.7 10*3/uL (4.8-10.8)
[2021-08-22 10:55] LABS: ALBUMIN 3.8 gm/dl (3.1-4.5); BUN 14 mg/dl (7-24); CHLORIDE 110 mmol/L (98-107); CREATININE 0.96 mg/dL (0.55-1.02); POTASSIUM 3.3 mmol/L (3.5-5.1); SGOT/AST 20 IU/L (3-35); SGPT/ALT 28 U/L (12-78); SODIUM 141 mmol/L (136-145); TOTAL PROTEIN 7.7 gm/dL (6.4-8.2)
[2021-08-22 10:56] LABS: ALKALINE PHOSPHATASE 49 U/L (45-117)
== END | disposition home or self-care (01) ==
LOC: LAB 10:21
PROVIDERS: ATTEND Internal Medicine
DX: Z13.220 Encounter for screening for lipoid disorders (principal); R53.81 Other malaise; R79.89 Other specified abnormal findings of blood chemistry; E55.9 Vitamin D deficiency, unspecified; D51.9 Vitamin B12 deficiency anemia, unspecified; D52.9 Folate deficiency anemia, unspecified; E03.9 Hypothyroidism, unspecified; Z13.1 Encounter for screening for diabetes mellitus; Z13.21 Encounter for screening for nutritional disorder; Z13.228 Encounter for screening for other metabolic disorders; Z13.6 Encounter for screening for cardiovascular disorders; Z13.89 Encounter for screening for other disorder

== ENCOUNTER → 2021-12-03 | Outpatient (CLI) | payer MEDICARE, OTHER | END | disposition home or self-care (01) | LOC: RAD 11:27 | PROVIDERS: ATTEND Internal Medicine | DX: M47.816 Spondylosis without myelopathy or radiculopathy, lumbar region (principal); M25.78 Osteophyte, vertebrae; I70.0 Atherosclerosis of aorta ==

== ENCOUNTER → 2022-01-03 | Outpatient (CLI) | payer MEDICARE, OTHER | END | disposition home or self-care (01) | LOC: MRI 08:00 | PROVIDERS: ATTEND Internal Medicine | DX: M85.88 Other specified disorders of bone density and structure, other site (principal); M51.16 Intervertebral disc disorders with radiculopathy, lumbar region; Z78.0 Asymptomatic menopausal state ==

== ENCOUNTER → 2022-01-24 | Outpatient (CLI) | payer MEDICARE, OTHER ==
[2022-01-24 12:09] LABS: BASO % 0.5 % (0.0-1.0); EOS # 0.1 10*3/uL (0.0-0.4); EOS % 2.1 % (1.0-4.0); HEMATOCRIT 38.6 % (37.0-47.0); LYMPH # 2.2 10*3/uL (1.3-4.4); LYMPH % 38.3 % (27.0-41.0); MEAN CELL VOLUME 93.7 fl (81.0-99.0); MEAN CORPUSCULAR HGB 31.1 pg (27.0-31.0); MEAN CORPUSCULAR HGB CONC 33.2 g/dl (33.0-37.0); MEAN PLATELET VOLUME 9.5 fl (9.6-12.3); MONO # 0.5 10*3/uL (0.1-1.0); MONO % 8.8 % (3.0-9.0); NEUT # 2.8 10*3/uL (2.3-7.9); NEUT % 49.9 % (47.0-73.0); PLATELET COUNT AUTOMATED 203 10*3/uL (130-400); RED BLOOD COUNT 4.12 10*6/uL (4.10-5.10); RED CELL DISTRI WIDTH 14.1 % (0-14.5); WHITE BLOOD COUNT 5.7 10*3/uL (4.8-10.8)
[2022-01-24 12:25] LABS: ALKALINE PHOSPHATASE 69 U/L (45-117); BUN 27 mg/dl (7-24); CHLORIDE 112 mmol/L (98-107); CREATININE 1.03 mg/dL (0.55-1.02); POTASSIUM 3.8 mmol/L (3.5-5.1); SGOT/AST 13 IU/L (3-35); SGPT/ALT 21 U/L (12-78); SODIUM 141 mmol/L (136-145); TOTAL PROTEIN 7.5 gm/dL (6.4-8.2)
== END ==
LOC: LAB 11:50
PROVIDERS: ATTEND Internal Medicine Rheumatology
DX: M05.79 Rheumatoid arthritis with rheumatoid factor of multiple sites without organ or systems involvement (principal); E78.00 Pure hypercholesterolemia, unspecified; Z79.899 Other long term (current) drug therapy

== ENCOUNTER 2022-02-24 12:21 | Inpatient (IN) | payer MEDICARE, OTHER ==
[~2022-02-24] VITALS: Ht 152.4 cm; Wt 55.8 kg
[2022-02-24 12:41] VITALS: BP 146/75
[2022-02-24 13:11] LABS: BASO % 0.1 % (0.0-1.0); HEMATOCRIT 37.9 % (37.0-47.0); LYMPH % 7.5 % (27.0-41.0); MEAN CELL VOLUME 91.1 fl (81.0-99.0); MEAN CORPUSCULAR HGB 31.7 pg (27.0-31.0); MEAN CORPUSCULAR HGB CONC 34.8 g/dl (33.0-37.0); MONO # 0.4 10*3/uL (0.1-1.0); MONO % 3.2 % (3.0-9.0); NEUT # 12.2 10*3/uL (2.3-7.9); NEUT % 88.8 % (47.0-73.0); PLATELET COUNT AUTOMATED 167 10*3/uL (130-400); RED BLOOD COUNT 4.16 10*6/uL (4.10-5.10); RED CELL DISTRI WIDTH 14.6 % (0-14.5); WHITE BLOOD COUNT 13.7 10*3/uL (4.8-10.8)
[2022-02-24 13:23] VITALS: BP 149/92
[2022-02-24 13:28] LABS: ALKALINE PHOSPHATASE 53 U/L (45-117); BUN 19 mg/dl (7-24); CHLORIDE 103 mmol/L (98-107); CREATININE 0.95 mg/dL (0.55-1.02); POTASSIUM 3.1 mmol/L (3.5-5.1); SGOT/AST 29 IU/L (3-35); SGPT/ALT 20 U/L (12-78); SODIUM 136 mmol/L (136-145)
[2022-02-24 13:57] VITALS: BP 140/53
[2022-02-24 15:10] VITALS: BP 136/53
[2022-02-24] MEDS ORDERED: METHOTREXATE2.5 MG PO (15:57)
[2022-02-24] MEDS ORDERED: CYMBALTA30 MG PO (16:20)
[2022-02-24] MEDS ORDERED: DELTASONE2.5 MG PO (16:20)
[2022-02-24 18:12] LABS: BILIRUBIN Negative (Negative); BLOOD Trace-Lysed (Negative); CLARITY Clear (Clear); COLOR Yellow (Yellow); GLUCOSE Trace (Negative); KETONE Trace (Negative); LEUKO ESTERASE Negative (Negative); NITRITE Negative (Negative); PH 6.5 (4.5-8.0)
[2022-02-24 18:24] LABS: BACTERIA 3+; RBC 0-2 rbc/hpf (0-2)
[2022-02-24 20:00] VITALS: BP 131/71
[2022-02-24 22:00] VITALS: BP 106/48; BP 125/47
[2022-02-25] VITALS (10 sets, daily range): BP systolic 96–131; BP diastolic 48–75
[2022-02-25 06:17] LABS: BUN 15 mg/dl (7-24); CHLORIDE 110 mmol/L (98-107); CREATININE 0.75 mg/dL (0.55-1.02); POTASSIUM 3.1 mmol/L (3.5-5.1); SODIUM 138 mmol/L (136-145)
[2022-02-25 06:34] LABS: BASO % 0.1 % (0.0-1.0); HEMATOCRIT 33.6 % (37.0-47.0); LYMPH # 1.5 10*3/uL (1.3-4.4); LYMPH % 13.5 % (27.0-41.0); MEAN CELL VOLUME 93.6 fl (81.0-99.0); MEAN CORPUSCULAR HGB 31.5 pg (27.0-31.0); MEAN CORPUSCULAR HGB CONC 33.6 g/dl (33.0-37.0); MEAN PLATELET VOLUME 10.3 fl (9.6-12.3); MONO # 0.7 10*3/uL (0.1-1.0); MONO % 5.7 % (3.0-9.0); NEUT # 9.1 10*3/uL (2.3-7.9); NEUT % 80.2 % (47.0-73.0); PLATELET COUNT AUTOMATED 141 10*3/uL (130-400); RED BLOOD COUNT 3.59 10*6/uL (4.10-5.10); RED CELL DISTRI WIDTH 14.7 % (0-14.5); WHITE BLOOD COUNT 11.4 10*3/uL (4.8-10.8)
[2022-02-26] VITALS (11 sets, daily range): BP systolic 108–138; BP diastolic 58–84
[2022-02-26 06:05] LABS: BUN 14 mg/dl (7-24); CHLORIDE 111 mmol/L (98-107); POTASSIUM 3.3 mmol/L (3.5-5.1); SODIUM 139 mmol/L (136-145)
[2022-02-26 06:24] LABS: BASO % 0.1 % (0.0-1.0); HEMATOCRIT 33.1 % (37.0-47.0); LYMPH # 1.9 10*3/uL (1.3-4.4); LYMPH % 17.2 % (27.0-41.0); MEAN CORPUSCULAR HGB 31.2 pg (27.0-31.0); MEAN CORPUSCULAR HGB CONC 33.5 g/dl (33.0-37.0); MEAN PLATELET VOLUME 10.4 fl (9.6-12.3); MONO # 0.6 10*3/uL (0.1-1.0); MONO % 5.7 % (3.0-9.0); NEUT # 8.3 10*3/uL (2.3-7.9); NEUT % 76.5 % (47.0-73.0); PLATELET COUNT AUTOMATED 159 10*3/uL (130-400); RED BLOOD COUNT 3.56 10*6/uL (4.10-5.10); RED CELL DISTRI WIDTH 15.1 % (0-14.5); WHITE BLOOD COUNT 10.8 10*3/uL (4.8-10.8)
[2022-02-27] VITALS (28 sets, daily range): BP systolic 95–143; BP diastolic 39–88
[2022-02-27 06:07] LABS: BUN 27 mg/dl (7-24); CHLORIDE 120 mmol/L (98-107); CREATININE 0.69 mg/dL (0.55-1.02); POTASSIUM 3.9 mmol/L (3.5-5.1); SODIUM 143 mmol/L (136-145)
[2022-02-27 06:08] LABS: MEAN CELL VOLUME 93.8 fl (81.0-99.0); MEAN CORPUSCULAR HGB 30.9 pg (27.0-31.0); MEAN CORPUSCULAR HGB CONC 32.9 g/dl (33.0-37.0); MEAN PLATELET VOLUME 10.4 fl (9.6-12.3); PLATELET COUNT AUTOMATED 181 10*3/uL (130-400); RED BLOOD COUNT 1.78 10*6/uL (4.10-5.10); RED CELL DISTRI WIDTH 15.4 % (0-14.5); WHITE BLOOD COUNT 12.9 10*3/uL (4.8-10.8)
[2022-02-27 06:19] LABS: MANUAL DIFF REFLEX YES
[2022-02-27 06:23] LABS: HEMATOCRIT 16.7 % (37.0-47.0)
[2022-02-27 07:04] LABS: PLATELET SUFFICIENCY NORMAL (NORMAL); TOTAL CELLS COUNTED 100 #CELLS
[2022-02-27 19:14] LABS: HEMATOCRIT 23.7 % (37.0-47.0)
[2022-02-28] VITALS (10 sets, daily range): BP systolic 98–166; BP diastolic 53–80
[2022-02-28 06:17] LABS: BASO % 0.2 % (0.0-1.0); EOS # 0.1 10*3/uL (0.0-0.4); EOS % 0.5 % (1.0-4.0); HEMATOCRIT 23.5 % (37.0-47.0); LYMPH # 1.7 10*3/uL (1.3-4.4); LYMPH % 15.5 % (27.0-41.0); MEAN CORPUSCULAR HGB 30.9 pg (27.0-31.0); MEAN CORPUSCULAR HGB CONC 34.9 g/dl (33.0-37.0); MEAN PLATELET VOLUME 9.8 fl (9.6-12.3); MONO # 0.9 10*3/uL (0.1-1.0); MONO % 8.1 % (3.0-9.0); NEUT % 74.2 % (47.0-73.0); NUCLEATED RED BLOOD CELL 0.3 % (0.0-0.0); PLATELET COUNT AUTOMATED 176 10*3/uL (130-400); RED BLOOD COUNT 2.65 10*6/uL (4.10-5.10); RED CELL DISTRI WIDTH 15.5 % (0-14.5); WHITE BLOOD COUNT 10.8 10*3/uL (4.8-10.8)
[2022-02-28 06:18] LABS: MEAN CELL VOLUME 88.7 fl (81.0-99.0)
[2022-02-28 06:24] LABS: CHLORIDE 123 mmol/L (98-107); CREATININE 0.47 mg/dL (0.55-1.02); POTASSIUM 3.1 mmol/L (3.5-5.1); SODIUM 147 mmol/L (136-145)
[2022-02-28 06:29] LABS: BUN 11 mg/dl (7-24)
[2022-03-01] VITALS: BP 157/72
[2022-03-01 04:00] VITALS: BP 140/68
[2022-03-01 05:35] LABS: BUN 5 mg/dl (7-24); CHLORIDE 117 mmol/L (98-107); CREATININE 0.53 mg/dL (0.55-1.02); POTASSIUM 3.2 mmol/L (3.5-5.1); SODIUM 146 mmol/L (136-145)
[2022-03-01 06:12] LABS: HEMATOCRIT 22.2 % (37.0-47.0); MEAN CELL VOLUME 87.4 fl (81.0-99.0); MEAN CORPUSCULAR HGB 30.7 pg (27.0-31.0); MEAN CORPUSCULAR HGB CONC 35.1 g/dl (33.0-37.0); MEAN PLATELET VOLUME 9.6 fl (9.6-12.3); NUCLEATED RED BLOOD CELL 0.1 10*3/uL (0.0-0.0); NUCLEATED RED BLOOD CELL 0.7 % (0.0-0.0); RED BLOOD COUNT 2.54 10*6/uL (4.10-5.10); RED CELL DISTRI WIDTH 15.6 % (0-14.5)
[2022-03-01 06:20] LABS: MANUAL DIFF REFLEX YES
[2022-03-01 06:35] LABS: PLATELET COUNT AUTOMATED 230 10*3/uL (130-400)
[2022-03-01 07:03] LABS: BASOPHILS 1 % (0-1); TOTAL CELLS COUNTED 100 #CELLS
[2022-03-01 07:04] LABS: PLATELET SUFFICIENCY NORMAL (NORMAL)
[2022-03-01 08:00] VITALS: BP 136/71
[2022-03-01 12:00] VITALS: BP 133/77
[2022-03-01 16:00] VITALS: BP 144/91
[2022-03-01 20:00] VITALS: BP 155/103
== END 2022-03-01 22:56 | disposition short-term general hospital (02) | DRG 871 ==
LOC: ED 12:21 → 5E 14:20 → EDHOLD 14:20 → ICCU 14:20 → 5E 15:04 → ICCU 02-27 06:32
PROVIDERS: Internal Medicine; Physician Assistant; ADMIT Internal Medicine; ATTEND Internal Medicine
PROC: 30233N1 Transfusion of Nonautologous Red Blood Cells into Peripheral Vein, Percutaneous Approach (ICD-10-PCS; 2022-02-27)
PROC: 05HB33Z Insertion of Infusion Device into Right Basilic Vein, Percutaneous Approach (ICD-10-PCS; 2022-02-27)
PROC: B54MZZA Ultrasonography of Right Upper Extremity Veins, Guidance (ICD-10-PCS; 2022-02-27)
PROC: 0DJ08ZZ Inspection of Upper Intestinal Tract, Via Natural or Artificial Opening Endoscopic (ICD-10-PCS; principal; 2022-02-28)
DX: A41.9 Sepsis, unspecified organism (principal); J18.9 Pneumonia, unspecified organism; J96.01 Acute respiratory failure with hypoxia; G93.41 Metabolic encephalopathy; N39.0 Urinary tract infection, site not specified; K92.2 Gastrointestinal hemorrhage, unspecified; I48.21 Permanent atrial fibrillation; F33.1 Major depressive disorder, recurrent, moderate; E87.0 Hyperosmolality and hypernatremia; M06.9 Rheumatoid arthritis, unspecified; R73.9 Hyperglycemia, unspecified; E86.0 Dehydration; E87.6 Hypokalemia; E77.8 Other disorders of glycoprotein metabolism; Z96.653 Presence of artificial knee joint, bilateral; R65.20 Severe sepsis without septic shock; I10 Essential (primary) hypertension; D64.9 Anemia, unspecified; Z83.3 Family history of diabetes mellitus; Z82.5 Family history of asthma and other chronic lower respiratory diseases; I25.2 Old myocardial infarction; Z98.51 Tubal ligation status

== ENCOUNTER → 2022-02-26 | Day surgery (SDC) | payer MEDICARE, OTHER ==
[~2022-02-26] MED LIST changes: +CYMBALTA30 MG PO; +DELTASONE2.5 MG PO; +METHOTREXATE2.5 MG PO
== END | disposition home or self-care (01) ==
LOC: SDC 02-21 11:00
PROVIDERS: ATTEND Ophthalmology
DX: Z53.8 Procedure and treatment not carried out for other reasons (principal)

== ENCOUNTER → 2022-03-28 | Outpatient (CLI) | payer MEDICARE, OTHER ==
[2022-03-28 09:42] LABS: BASO % 0.1 % (0.0-1.0); EOS % 0.6 % (1.0-4.0); LYMPH # 2.3 10*3/uL (1.3-4.4); LYMPH % 31.5 % (27.0-41.0); MEAN CELL VOLUME 93.5 fl (81.0-99.0); MEAN CORPUSCULAR HGB 30.3 pg (27.0-31.0); MEAN CORPUSCULAR HGB CONC 32.4 g/dl (33.0-37.0); MEAN PLATELET VOLUME 9.4 fl (9.6-12.3); MONO # 0.4 10*3/uL (0.1-1.0); MONO % 5.5 % (3.0-9.0); NEUT # 4.5 10*3/uL (2.3-7.9); NEUT % 62.2 % (47.0-73.0); PLATELET COUNT AUTOMATED 192 10*3/uL (130-400); RED BLOOD COUNT 3.53 10*6/uL (4.10-5.10); WHITE BLOOD COUNT 7.3 10*3/uL (4.8-10.8)
[2022-03-28 10:00] LABS: CREATININE 1.38 mg/dL (0.55-1.02); POTASSIUM 3.4 mmol/L (3.5-5.1); TOTAL PROTEIN 7.5 gm/dL (6.4-8.2)
[2022-03-28 10:06] LABS: FREE T4 0.82 ng/dl (0.76-1.46); THYROID STIM HORMONE (HS) 4.7 uIU/ml (0.358-4.75)
[2022-03-28 11:26] LABS: VITAMIN D, 25-HYDROXY 32.9 ng/mL (30-100)
== END ==
LOC: LAB 09:22
PROVIDERS: ATTEND Internal Medicine
DX: Z13.1 Encounter for screening for diabetes mellitus (principal); Z13.89 Encounter for screening for other disorder; Z13.0 Encounter for screening for diseases of the blood and blood-forming organs and certain disorders involving the immune mechanism; E55.9 Vitamin D deficiency, unspecified; R79.89 Other specified abnormal findings of blood chemistry; I10 Essential (primary) hypertension

== ENCOUNTER → 2022-07-30 | Day surgery (SDC) | payer MEDICARE, OTHER ==
[~2022-07-30] VITALS: Ht 152.4 cm; Wt 55.8 kg
[~2022-07-30] MED LIST changes: +B121000 MCG/1 IM; +CALCIUM 1,0001 EAC3 PO; +ELIQUIS5 M1 PO; +HYDROXYCHLOROQ200 M1 PO; +METOPROLOL TART75 MG PO; +PROTONIX20 MG PO
[2022-07-30 09:30] VITALS: BP 139/73
[2022-07-30 10:55] VITALS: BP 122/85
[2022-07-30 11:10] VITALS: BP 132/72
[2022-07-30 11:23] VITALS: BP 133/79
== END | disposition home or self-care (01) ==
LOC: SDC 07-25 11:00
PROVIDERS: ATTEND Ophthalmology
DX: H25.811 Combined forms of age-related cataract, right eye (principal); K21.9 Gastro-esophageal reflux disease without esophagitis; I10 Essential (primary) hypertension; M19.90 Unspecified osteoarthritis, unspecified site; Z79.899 Other long term (current) drug therapy

== ENCOUNTER → 2022-09-24 | Day surgery (SDC) | payer MEDICARE, OTHER ==
[~2022-09-24] VITALS: Ht 152.4 cm; Wt 55.8 kg
[~2022-09-24] MED LIST changes: +OCUFLOX 0.3% 5 M5 ML OP; +PRED FORTE5 ML OP
[2022-09-24 10:35] VITALS: BP 167/83
[2022-09-24 11:33] VITALS: BP 132/81
[2022-09-24 11:48] VITALS: BP 150/79
[2022-09-24 12:03] VITALS: BP 161/79
== END | disposition home or self-care (01) ==
LOC: SDC 09-19 11:00
PROVIDERS: ATTEND Ophthalmology
DX: H25.812 Combined forms of age-related cataract, left eye (principal); I10 Essential (primary) hypertension; K21.9 Gastro-esophageal reflux disease without esophagitis; M06.9 Rheumatoid arthritis, unspecified; Z79.899 Other long term (current) drug therapy

== ENCOUNTER → 2022-11-06 | Outpatient (CLI) | payer MEDICARE, OTHER ==
[2022-11-06 13:02] LABS: BASO % 0.4 % (0.0-1.0); EOS # 0.1 10*3/uL (0.0-0.4); EOS % 1.4 % (1.0-4.0); HEMATOCRIT 32.3 % (37.0-47.0); LYMPH # 1.4 10*3/uL (1.3-4.4); LYMPH % 19.7 % (27.0-41.0); MEAN CELL VOLUME 77.6 fl (81.0-99.0); MEAN CORPUSCULAR HGB 23.1 pg (27.0-31.0); MEAN CORPUSCULAR HGB CONC 29.7 g/dl (33.0-37.0); MEAN PLATELET VOLUME 8.8 fl (9.6-12.3); MONO # 0.5 10*3/uL (0.1-1.0); MONO % 6.3 % (3.0-9.0); NEUT # 5.2 10*3/uL (2.3-7.9); NEUT % 72.1 % (47.0-73.0); PLATELET COUNT AUTOMATED 388 10*3/uL (130-400); RED BLOOD COUNT 4.16 10*6/uL (4.10-5.10); RED CELL DISTRI WIDTH 17.3 % (0-14.5); WHITE BLOOD COUNT 7.3 10*3/uL (4.8-10.8)
[2022-11-06 13:21] LABS: ALKALINE PHOSPHATASE 51 U/L (46-116); BUN 18 mg/dl (9-23); CHLORIDE 107 mmol/L (98-107); CHOLESTEROL 125 mg/dL (<200); FREE T4 1.06 ng/dl (0.89-1.76); LDL CHOLESTEROL 52 mg/dL (9-159); POTASSIUM 3.9 mmol/L (3.4-5.1); SGPT/ALT 14 U/L (10-49); THYROID STIM HORMONE (HS) 2.237 uIU/ml (0.550-4.780); TOTAL PROTEIN 8.1 gm/dL (6.0-8.0); TRIGLYCERIDES 109 mg/dl (<150)
[2022-11-06 14:23] LABS: VITAMIN D, 25-HYDROXY 35.5 ng/mL (30-100)
== END | disposition home or self-care (01) ==
LOC: LAB 11:45 → CT 13:00
PROVIDERS: ATTEND Internal Medicine
DX: I11.9 Hypertensive heart disease without heart failure (principal); D51.9 Vitamin B12 deficiency anemia, unspecified; E55.9 Vitamin D deficiency, unspecified; Z13.0 Encounter for screening for diseases of the blood and blood-forming organs and certain disorders involving the immune mechanism; Z13.1 Encounter for screening for diabetes mellitus; Z13.21 Encounter for screening for nutritional disorder; Z13.220 Encounter for screening for lipoid disorders; Z13.228 Encounter for screening for other metabolic disorders; Z13.6 Encounter for screening for cardiovascular disorders; I25.10 Atherosclerotic heart disease of native coronary artery without angina pectoris; R91.1 Solitary pulmonary nodule; I71.21 Aneurysm of the ascending aorta, without rupture

== ENCOUNTER → 2023-03-02 | Outpatient (CLI) | payer MEDICARE, OTHER ==
[~2023-03-02] MED LIST changes: +HUMIRA40 MG/0.4 SQ; +LEFLUNOMIDE10 M1 PO; +LOPRESSOR100 M1 PO; -METOPROLOL TART75 MG PO; +OYSTER SHELL PO; -PROTONIX20 MG PO; +PROTONIX40 MG PO; +TRELEGY ELLIPT1 EACH PO
== END | disposition home or self-care (01) ==
LOC: CARD 01:07
PROVIDERS: ATTEND Internal Medicine
DX: I10 Essential (primary) hypertension (principal)

== ENCOUNTER → 2023-03-06 | Outpatient (CLI) | payer MEDICARE, OTHER ==
[2023-03-06 10:20] LABS: BASO # 0.1 10*3/uL (0.0-0.1); BASO % 0.4 % (0.0-1.0); EOS # 0.1 10*3/uL (0.0-0.4); EOS % 0.8 % (1.0-4.0); HEMATOCRIT 34.9 % (37.0-47.0); MEAN CELL VOLUME 78.3 fl (81.0-99.0); MEAN CORPUSCULAR HGB 22.4 pg (27.0-31.0); MEAN CORPUSCULAR HGB CONC 28.7 g/dl (33.0-37.0); MEAN PLATELET VOLUME 8.5 fl (9.6-12.3); MONO # 0.9 10*3/uL (0.1-1.0); MONO % 7.4 % (3.0-9.0); NEUT # 8.8 10*3/uL (2.3-7.9); NEUT % 74.1 % (47.0-73.0); PLATELET COUNT AUTOMATED 323 10*3/uL (130-400); RED BLOOD COUNT 4.46 10*6/uL (4.10-5.10); RED CELL DISTRI WIDTH 18.6 % (0-14.5); WHITE BLOOD COUNT 11.8 10*3/uL (4.8-10.8)
[2023-03-06 11:03] LABS: ALKALINE PHOSPHATASE 46 U/L (46-116); BUN 14 mg/dl (9-23); CHLORIDE 108 mmol/L (98-107); POTASSIUM 3.5 mmol/L (3.4-5.1); SGPT/ALT 11 U/L (10-49); TOTAL PROTEIN 7.5 gm/dL (6.0-8.0)
== END | disposition home or self-care (01) ==
LOC: LAB 00:49 → CARD 00:49
PROVIDERS: Internal Medicine Rheumatology; ATTEND Internal Medicine
DX: I51.7 Cardiomegaly (principal)

== ENCOUNTER → 2023-06-23 | Outpatient (CLI) | payer MEDICARE, OTHER ==
[2023-06-23 11:39] LABS: BASO % 0.6 % (0.0-1.0); EOS # 0.1 10*3/uL (0.0-0.4); HEMATOCRIT 32.2 % (37.0-47.0); LYMPH # 1.8 10*3/uL (1.3-4.4); LYMPH % 24.8 % (27.0-41.0); MEAN CELL VOLUME 77.4 fl (81.0-99.0); MEAN CORPUSCULAR HGB 22.4 pg (27.0-31.0); MEAN CORPUSCULAR HGB CONC 28.9 g/dl (33.0-37.0); MEAN PLATELET VOLUME 9.2 fl (9.6-12.3); MONO # 0.7 10*3/uL (0.1-1.0); MONO % 9.5 % (3.0-9.0); NEUT # 4.5 10*3/uL (2.3-7.9); NEUT % 63.8 % (47.0-73.0); PLATELET COUNT AUTOMATED 341 10*3/uL (130-400); RED BLOOD COUNT 4.16 10*6/uL (4.10-5.10); RED CELL DISTRI WIDTH 19.1 % (0-14.5); WHITE BLOOD COUNT 7.1 10*3/uL (4.8-10.8)
[2023-06-23 11:58] LABS: POTASSIUM 2.9 mmol/L (3.4-5.1); TOTAL PROTEIN 7.2 gm/dL (6.0-8.0)
== END | disposition home or self-care (01) ==
LOC: LAB 10:58
PROVIDERS: ATTEND Internal Medicine Rheumatology
DX: M05.79 Rheumatoid arthritis with rheumatoid factor of multiple sites without organ or systems involvement (principal)

== ENCOUNTER → 2023-08-06 | Outpatient (CLI) | payer MEDICARE, OTHER ==
[~2023-08-06] MED LIST changes: +DAILY VALUE1 EACH PO; +METOPROLOL SUC100 M1 PO; +METOPROLOL SUCC50 M1 PO; +PACERONE200 MG PO
[2023-08-06 13:01] LABS: BASO % 0.7 % (0.0-1.0); EOS # 0.1 10*3/uL (0.0-0.4); EOS % 2.3 % (1.0-4.0); LYMPH # 1.1 10*3/uL (1.3-4.4); LYMPH % 24.5 % (27.0-41.0); MEAN CELL VOLUME 80.5 fl (81.0-99.0); MEAN CORPUSCULAR HGB 22.9 pg (27.0-31.0); MEAN CORPUSCULAR HGB CONC 28.5 g/dl (33.0-37.0); MEAN PLATELET VOLUME 8.9 fl (9.6-12.3); MONO # 0.4 10*3/uL (0.1-1.0); MONO % 9.9 % (3.0-9.0); NEUT # 2.8 10*3/uL (2.3-7.9); NEUT % 62.4 % (47.0-73.0); PLATELET COUNT AUTOMATED 262 10*3/uL (130-400); RED CELL DISTRI WIDTH 20.5 % (0-14.5); WHITE BLOOD COUNT 4.4 10*3/uL (4.8-10.8)
[2023-08-06 13:23] LABS: ALKALINE PHOSPHATASE 43 U/L (46-116); BUN 18 mg/dl (9-23); CHLORIDE 108 mmol/L (98-107); SGPT/ALT 8 U/L (5-49)
== END | disposition home or self-care (01) ==
LOC: LAB 12:33
PROVIDERS: ATTEND Internal Medicine Rheumatology
DX: M05.79 Rheumatoid arthritis with rheumatoid factor of multiple sites without organ or systems involvement (principal)

== ENCOUNTER → 2023-08-28 | Outpatient (CLI) | payer MEDICARE, OTHER ==
[2023-08-28 12:19] LABS: BASO % 0.7 % (0.0-1.0); EOS # 0.1 10*3/uL (0.0-0.4); EOS % 1.6 % (1.0-4.0); HEMATOCRIT 32.8 % (37.0-47.0); LYMPH # 1.1 10*3/uL (1.3-4.4); LYMPH % 18.7 % (27.0-41.0); MEAN CELL VOLUME 81.8 fl (81.0-99.0); MEAN CORPUSCULAR HGB 23.7 pg (27.0-31.0); MEAN PLATELET VOLUME 8.5 fl (9.6-12.3); MONO # 0.5 10*3/uL (0.1-1.0); MONO % 9.2 % (3.0-9.0); NEUT % 69.4 % (47.0-73.0); PLATELET COUNT AUTOMATED 232 10*3/uL (130-400); RED BLOOD COUNT 4.01 10*6/uL (4.10-5.10); RED CELL DISTRI WIDTH 20.4 % (0-14.5); WHITE BLOOD COUNT 5.7 10*3/uL (4.8-10.8)
[2023-08-28 12:47] LABS: ALKALINE PHOSPHATASE 50 U/L (46-116); BUN 17 mg/dl (9-23); CHLORIDE 108 mmol/L (98-107); POTASSIUM 3.4 mmol/L (3.4-5.1); SGPT/ALT 11 U/L (5-49); TOTAL PROTEIN 7.3 gm/dL (6.0-8.0)
== END | disposition home or self-care (01) ==
LOC: LAB 12:01
PROVIDERS: ATTEND Internal Medicine Rheumatology
DX: M05.79 Rheumatoid arthritis with rheumatoid factor of multiple sites without organ or systems involvement (principal)

== ENCOUNTER → 2023-09-29 | Outpatient (CLI) | payer MEDICARE, OTHER ==
[2023-09-29 13:40] LABS: BASO % 0.7 % (0.0-1.0); EOS # 0.1 10*3/uL (0.0-0.4); EOS % 1.7 % (1.0-4.0); LYMPH # 1.1 10*3/uL (1.3-4.4); LYMPH % 19.7 % (27.0-41.0); MEAN CELL VOLUME 82.1 fl (81.0-99.0); MEAN CORPUSCULAR HGB 23.3 pg (27.0-31.0); MEAN CORPUSCULAR HGB CONC 28.4 g/dl (33.0-37.0); MEAN PLATELET VOLUME 8.3 fl (9.6-12.3); MONO # 0.6 10*3/uL (0.1-1.0); MONO % 9.9 % (3.0-9.0); NEUT # 3.9 10*3/uL (2.3-7.9); NEUT % 67.8 % (47.0-73.0); PLATELET COUNT AUTOMATED 265 10*3/uL (130-400); RED CELL DISTRI WIDTH 18.1 % (0-14.5); WHITE BLOOD COUNT 5.8 10*3/uL (4.8-10.8)
[2023-09-29 14:10] LABS: ALKALINE PHOSPHATASE 46 U/L (46-116); BUN 17 mg/dl (9-23); CHLORIDE 107 mmol/L (98-107); POTASSIUM 3.9 mmol/L (3.4-5.1); TOTAL PROTEIN 7.1 gm/dL (6.0-8.0)
[2023-09-29 14:18] LABS: SGPT/ALT < 7 U/L (5-49)
== END | disposition home or self-care (01) ==
LOC: LAB 13:17
PROVIDERS: ATTEND Internal Medicine Rheumatology
DX: M05.79 Rheumatoid arthritis with rheumatoid factor of multiple sites without organ or systems involvement (principal)

== ENCOUNTER → 2023-10-29 | Outpatient (CLI) | payer MEDICARE, OTHER ==
[2023-10-29 16:07] LABS: BASO % 0.3 % (0.0-1.0); EOS % 0.5 % (1.0-4.0); HEMATOCRIT 32.3 % (37.0-47.0); LYMPH # 1.6 10*3/uL (1.3-4.4); LYMPH % 25.8 % (27.0-41.0); MEAN CELL VOLUME 80.8 fl (81.0-99.0); MEAN CORPUSCULAR HGB 22.3 pg (27.0-31.0); MEAN CORPUSCULAR HGB CONC 27.6 g/dl (33.0-37.0); MEAN PLATELET VOLUME 8.8 fl (9.6-12.3); MONO # 0.5 10*3/uL (0.1-1.0); MONO % 8.7 % (3.0-9.0); NEUT # 3.9 10*3/uL (2.3-7.9); NEUT % 64.4 % (47.0-73.0); PLATELET COUNT AUTOMATED 293 10*3/uL (130-400); RED CELL DISTRI WIDTH 17.3 % (0-14.5); WHITE BLOOD COUNT 6.1 10*3/uL (4.8-10.8)
[2023-10-29 16:24] LABS: ALKALINE PHOSPHATASE 52 U/L (46-116); BUN 21 mg/dl (9-23); CHLORIDE 107 mmol/L (98-107); SGPT/ALT 11 U/L (5-49); TOTAL PROTEIN 7.5 gm/dL (6.0-8.0)
== END | disposition home or self-care (01) ==
LOC: LAB 15:49
PROVIDERS: ATTEND Internal Medicine Rheumatology
DX: M05.79 Rheumatoid arthritis with rheumatoid factor of multiple sites without organ or systems involvement (principal)

== ENCOUNTER → 2023-12-10 | Outpatient (CLI) | payer MEDICARE, OTHER ==
[2023-12-10 09:58] LABS: BASO % 0.5 % (0.0-1.0); EOS # 0.1 10*3/uL (0.0-0.4); EOS % 2.1 % (1.0-4.0); LYMPH # 1.5 10*3/uL (1.3-4.4); LYMPH % 25.4 % (27.0-41.0); MEAN CELL VOLUME 78.4 fl (81.0-99.0); MEAN CORPUSCULAR HGB 21.8 pg (27.0-31.0); MEAN CORPUSCULAR HGB CONC 27.8 g/dl (33.0-37.0); MEAN PLATELET VOLUME 8.5 fl (9.6-12.3); MONO # 0.6 10*3/uL (0.1-1.0); MONO % 9.9 % (3.0-9.0); NEUT # 3.8 10*3/uL (2.3-7.9); NEUT % 61.9 % (47.0-73.0); PLATELET COUNT AUTOMATED 245 10*3/uL (130-400); RED BLOOD COUNT 4.08 10*6/uL (4.10-5.10); RED CELL DISTRI WIDTH 18.4 % (0-14.5); WHITE BLOOD COUNT 6.1 10*3/uL (4.8-10.8)
[2023-12-10 10:30] LABS: ALKALINE PHOSPHATASE 44 U/L (46-116); BUN 12 mg/dl (9-23); CHLORIDE 107 mmol/L (98-107); POTASSIUM 3.3 mmol/L (3.4-5.1); SGPT/ALT 11 U/L (5-49); TOTAL PROTEIN 7.2 gm/dL (6.0-8.0)
[2023-12-10 10:33] LABS: FREE T4 0.64 ng/dl (0.89-1.76)
[2023-12-10 12:11] LABS: VITAMIN D, 25-HYDROXY 25.7 ng/mL (30-100)
== END | disposition home or self-care (01) ==
LOC: LAB 09:39
PROVIDERS: Internal Medicine; ATTEND Internal Medicine Rheumatology
DX: I10 Essential (primary) hypertension (principal); M05.79 Rheumatoid arthritis with rheumatoid factor of multiple sites without organ or systems involvement; E78.2 Mixed hyperlipidemia; J96.10 Chronic respiratory failure, unspecified whether with hypoxia or hypercapnia; F32.0 Major depressive disorder, single episode, mild

== ENCOUNTER → 2023-12-30 | Outpatient (CLI) | payer MEDICARE, OTHER | END | disposition home or self-care (01) | LOC: LAB 12:43 | PROVIDERS: ATTEND Internal Medicine | DX: Z13.220 Encounter for screening for lipoid disorders (principal); Z13.228 Encounter for screening for other metabolic disorders; Z13.6 Encounter for screening for cardiovascular disorders; Z13.89 Encounter for screening for other disorder; Z13.21 Encounter for screening for nutritional disorder; Z13.1 Encounter for screening for diabetes mellitus; Z13.0 Encounter for screening for diseases of the blood and blood-forming organs and certain disorders involving the immune mechanism; D52.9 Folate deficiency anemia, unspecified; D51.9 Vitamin B12 deficiency anemia, unspecified; E03.9 Hypothyroidism, unspecified; E55.9 Vitamin D deficiency, unspecified; R79.89 Other specified abnormal findings of blood chemistry; R53.81 Other malaise ==

== ENCOUNTER → 2024-02-09 | Outpatient (CLI) | payer MEDICARE, OTHER ==
[2024-02-09 12:51] LABS: BASO % 0.5 % (0.0-1.0); EOS # 0.1 10*3/uL (0.0-0.4); EOS % 1.2 % (1.0-4.0); HEMATOCRIT 31.6 % (37.0-47.0); LYMPH # 1.2 10*3/uL (1.3-4.4); LYMPH % 15.8 % (27.0-41.0); MEAN CELL VOLUME 78.6 fl (81.0-99.0); MEAN CORPUSCULAR HGB 22.4 pg (27.0-31.0); MEAN CORPUSCULAR HGB CONC 28.5 g/dl (33.0-37.0); MEAN PLATELET VOLUME 8.9 fl (9.6-12.3); MONO # 0.5 10*3/uL (0.1-1.0); MONO % 7.3 % (3.0-9.0); NEUT # 5.5 10*3/uL (2.3-7.9); NEUT % 74.9 % (47.0-73.0); PLATELET COUNT AUTOMATED 311 10*3/uL (130-400); RED BLOOD COUNT 4.02 10*6/uL (4.10-5.10); RED CELL DISTRI WIDTH 20.8 % (0-14.5); WHITE BLOOD COUNT 7.3 10*3/uL (4.8-10.8)
[2024-02-09 16:38] LABS: POTASSIUM 4.1 mmol/L (3.4-5.1); TOTAL PROTEIN 7.5 gm/dL (6.0-8.0)
== END | disposition home or self-care (01) ==
LOC: LAB 12:17
PROVIDERS: ATTEND Internal Medicine Rheumatology
DX: M47.816 Spondylosis without myelopathy or radiculopathy, lumbar region (principal); M43.16 Spondylolisthesis, lumbar region; M54.50 Low back pain, unspecified; M41.86 Other forms of scoliosis, lumbar region; M48.061 Spinal stenosis, lumbar region without neurogenic claudication; M51.36 Other intervertebral disc degeneration, lumbar region

== ENCOUNTER → 2024-02-16 | Outpatient (CLI) | payer MEDICARE, OTHER | END | disposition home or self-care (01) | LOC: US 13:51 | PROVIDERS: ATTEND Internal Medicine | DX: N28.1 Cyst of kidney, acquired (principal); K76.89 Other specified diseases of liver; K76.0 Fatty (change of) liver, not elsewhere classified ==

== ENCOUNTER → 2024-03-04 | Outpatient (CLI) | payer MEDICARE, OTHER | END | disposition home or self-care (01) | LOC: MRI 01:18 | PROVIDERS: ATTEND Internal Medicine | DX: M51.37 Other intervertebral disc degeneration, lumbosacral region (principal); M48.07 Spinal stenosis, lumbosacral region; M47.817 Spondylosis without myelopathy or radiculopathy, lumbosacral region; M51.34 Other intervertebral disc degeneration, thoracic region; M48.04 Spinal stenosis, thoracic region ==

== ENCOUNTER 2024-04-20 16:24 | Emergency (ER) | payer MEDICARE, OTHER ==
[~2024-04-20] VITALS: Ht 149.8 cm; Wt 51.7 kg
[2024-04-20] MEDS ORDERED: Cyclobenzaprine Hydrochlorid 10 MG TAB PO ONE (16:55)
[2024-04-20] MEDS ORDERED: PREDNISONE20 M1 PO (19:13)
[2024-04-20] MEDS ORDERED: CYCLOBENZAPRINE5 M3 PO (19:13)
[2024-04-20] MEDS ORDERED: VOLTAREN ARTHRI20 GM T (19:20)
[2024-04-20] MEDS ORDERED: methylPREDNISolone sod succ 125 MG VIAL IM ONE (19:20)
== END 2024-04-20 19:18 | disposition home or self-care (01) ==
LOC: ED 16:24
DX: M71.58 Other bursitis, not elsewhere classified, other site (principal); M54.50 Low back pain, unspecified; Z79.899 Other long term (current) drug therapy; Z98.51 Tubal ligation status

== ENCOUNTER → 2024-07-08 | Outpatient (CLI) | payer MEDICARE, OTHER ==
[~2024-07-08] MED LIST changes: +CARVEDILOL12.5 MG PO; +CYCLOBENZAPRINE5 M3 PO; +NEURONTIN300 MG PO; +PREDNISONE20 M1 PO; +VITAMIN D350 MCG PO; +VOLTAREN ARTHRI20 GM T
== END | disposition home or self-care (01) ==
LOC: MRI 09:35
PROVIDERS: ATTEND Internal Medicine
DX: S46.001A Unspecified injury of muscle(s) and tendon(s) of the rotator cuff of right shoulder, initial encounter (principal); M19.011 Primary osteoarthritis, right shoulder; M25.511 Pain in right shoulder; X58.XXXA Exposure to other specified factors, initial encounter; Y93.89 Activity, other specified; Y92.89 Other specified places as the place of occurrence of the external cause; Y99.8 Other external cause status

== ENCOUNTER → 2024-07-15 | Outpatient (CLI) | payer MEDICARE, OTHER ==
[2024-07-15 09:40] LABS: BASO % 0.7 % (0.0-1.0); EOS # 0.2 10*3/uL (0.0-0.4); EOS % 2.9 % (1.0-4.0); HEMATOCRIT 30.5 % (37.0-47.0); MEAN CELL VOLUME 90.2 fl (81.0-99.0); MEAN CORPUSCULAR HGB 26.3 pg (27.0-31.0); MEAN CORPUSCULAR HGB CONC 29.2 g/dl (33.0-37.0); MEAN PLATELET VOLUME 8.7 fl (9.6-12.3); MONO # 0.7 10*3/uL (0.1-1.0); MONO % 12.2 % (3.0-9.0); NEUT # 3.8 10*3/uL (2.3-7.9); NEUT % 64.4 % (47.0-73.0); PLATELET COUNT AUTOMATED 255 10*3/uL (130-400); RED BLOOD COUNT 3.38 10*6/uL (4.10-5.10); RED CELL DISTRI WIDTH 18.2 % (0-14.5); WHITE BLOOD COUNT 5.8 10*3/uL (4.8-10.8)
== END | disposition home or self-care (01) ==
LOC: LAB 09:20
PROVIDERS: ATTEND Internal Medicine
DX: R53.81 Other malaise (principal)

== ENCOUNTER → 2025-01-19 | Outpatient (CLI) | payer MEDICARE, OTHER ==
[2025-01-19 13:19] LABS: BASO % 0.6 % (0.0-1.0); EOS # 0.2 10*3/uL (0.0-0.4); EOS % 3.4 % (1.0-4.0); HEMATOCRIT 36.3 % (37.0-47.0); MEAN CELL VOLUME 91.2 fl (81.0-99.0); MEAN CORPUSCULAR HGB 28.6 pg (27.0-31.0); MEAN CORPUSCULAR HGB CONC 31.4 g/dl (33.0-37.0); MEAN PLATELET VOLUME 9.1 fl (9.6-12.3); MONO # 0.5 10*3/uL (0.1-1.0); MONO % 10.1 % (3.0-9.0); NEUT # 2.6 10*3/uL (2.3-7.9); NEUT % 49.3 % (47.0-73.0); PLATELET COUNT AUTOMATED 263 10*3/uL (130-400); RED BLOOD COUNT 3.98 10*6/uL (4.10-5.10); RED CELL DISTRI WIDTH 18.1 % (0-14.5); WHITE BLOOD COUNT 5.3 10*3/uL (4.8-10.8)
[2025-01-19 13:40] LABS: ALKALINE PHOSPHATASE 60 U/L (46-116); BUN 18 mg/dl (9-23); CHLORIDE 108 mmol/L (98-107); POTASSIUM 3.6 mmol/L (3.4-5.1); SGPT/ALT 11 U/L (5-49); TOTAL PROTEIN 7.1 gm/dL (6.0-8.0)
== END | disposition home or self-care (01) ==
LOC: LAB 12:21
PROVIDERS: ATTEND Internal Medicine Rheumatology
DX: M05.79 Rheumatoid arthritis with rheumatoid factor of multiple sites without organ or systems involvement (principal)

== ENCOUNTER → 2025-05-09 | Outpatient (CLI) | payer MEDICARE, OTHER ==
[2025-05-09 09:47] LABS: BASO # 0.0 10*3/uL (0.0-0.1); BASO % 0.4 % (0.0-1.0); EOS # 0.1 10*3/uL (0.0-0.4); EOS % 1.1 % (1.0-4.0); MEAN CELL VOLUME 93.9 fl (81.0-99.0); MEAN CORPUSCULAR HGB 29.6 pg (27.0-31.0); MEAN PLATELET VOLUME 9.1 fl (9.6-12.3); MONO # 0.8 10*3/uL (0.1-1.0); MONO % 10.5 % (3.0-9.0); NEUT # 4.3 10*3/uL (2.3-7.9); NEUT % 57.8 % (47.0-73.0); NUCLEATED RED BLOOD CELL 0.0 % (0.0-0.0); NUCLEATED RED BLOOD CELL 0.0 10*3/uL (0.0-0.0); PLATELET COUNT AUTOMATED 272 10*3/uL (130-400); RED CELL DISTRI WIDTH 16.3 % (0-14.5)
[2025-05-09 09:59] LABS: ACT PARTIAL THROMBO TIME 24.2 SECONDS (20.0-32.1)
[2025-05-09 10:34] LABS: BUN 27.0 mg/dl (9-23); FREE T4 0.65 ng/dl (0.89-1.76)
== END | disposition home or self-care (01) ==
LOC: LAB 09:26
PROVIDERS: ATTEND Internal Medicine
DX: Z01.812 Encounter for preprocedural laboratory examination (principal)